=== PATIENT | female | born 1965 | race Caucasian/White ===

== ENCOUNTER 2018-07-13 20:34 | Emergency (ER) | payer BC, OTHER ==
[~2018-07-13] VITALS: Ht 167.6 cm; Wt 87.7 kg
[2018-07-13] MEDS ORDERED: bacitracin 15gm ointment TP ONE (21:55)
[2018-07-13] MEDS ORDERED: morphine 4 MG/ML inj SYRINge IV ONE (21:55)
[2018-07-13] MEDS ORDERED: ondansetron/PF 4mg/2ml inj IV ONE (21:55)
[2018-07-13] MEDS ORDERED: normal saline 1000ML IV soln IVB ONE (21:55)
[2018-07-13] MEDS ORDERED: ketorolac trometh. 30mg/ml inj. IV ONE (21:55)
[2018-07-13] MEDS ORDERED: doxycycline inj 100 MG in normal saline 100ml IV soln 100 ML IV ONE (22:00)
[2018-07-13] MEDS ORDERED: ceFAZolin 1GM/D5W- ADD-VANTAGE 50 ML IV ONE (22:00)
[2018-07-14] MEDS ORDERED: DOXY100C43 PO (00:02)
[2018-07-14] MEDS ORDERED: CEPH250T PO (00:02)
[2018-07-14] MEDS ORDERED: ONDA8TAB6 PO (00:02)
[2018-07-14] MEDS ORDERED: HYDR-3965 PO (00:02)
[2018-07-14] MEDS ORDERED: HYDROcodone/acetaminophen 5mg/325mg tablet PO ONE (01:10)
[2018-07-14 01:17] VITALS: BP 126/84
[2018-07-15] MEDS ORDERED: LINE600T36 PO (23:43)
[2018-07-15] MEDS ORDERED: HYDR-4353 PO (23:43)
== END 2018-07-14 01:28 | disposition home or self-care (01) ==
LOC: ER 20:35
DX: L02.01 Cutaneous abscess of face (principal); Z86.14 Personal history of Methicillin resistant Staphylococcus aureus infection; Z88.2 Allergy status to sulfonamides; Z88.8 Allergy status to other drugs, medicaments and biological substances; Z79.899 Other long term (current) drug therapy
CPT/HCPCS: 10061; 87070; 87077; 87186; 96365; 96375; 99284; J0690; J1885; J2270; J2405; J3490; J7030

== ENCOUNTER 2018-07-15 19:23 | Emergency (ER) | payer BC, OTHER ==
[~2018-07-15] VITALS: Ht 167.6 cm; Wt 100.0 kg
[~2018-07-15 19:23] MED LIST: CEPH250T PO; DOXY100C43 PO; HYDR-3965 PO; ONDA8TAB6 PO
[2018-07-15] MEDS ORDERED: normal saline 1000ML IV soln IVB ONE (20:00)
[2018-07-15] MEDS ORDERED: LORazepam 2 mg/ml vial IV ONE ×2 (20:00→21:20)
[2018-07-15] MEDS ORDERED: probenecid 500mg tablet PO ONE (20:00)
[2018-07-15] MEDS ORDERED: gentamicin 40 MG/1 ML inj IV STA (20:00)
[2018-07-15] MEDS ORDERED: morphine 4 MG/ML inj SYRINge IV ONE ×3 (20:00→23:35)
[2018-07-15] MEDS ORDERED: LIDOcaine 1.5% w/epinephrine 1:200,000 5ml ampul IJ ONE (20:10)
[2018-07-15] MEDS ORDERED: ampicillin/sulbac 3gm/NS 100ml 100 ML IV ONE (20:11)
[2018-07-15] MEDS ORDERED: GENTAMICIN IV ONE (20:12)
[2018-07-15] MEDS ORDERED: NORMAL SALINE IV ONE (20:12)
[2018-07-15] MEDS ORDERED: LIDOcaine 1% w/epiNEPHrine 1:200,000 30ml vial IJ ONE (20:15)
[2018-07-15 20:33] LABS: BASOPHILS # (AUTO) 0.1 X10'3 (0-0.2); BASOPHILS % (AUTO) 0.5 % (0-1); EOSINOPHILS # (AUTO) 0.2 X10'3 (0-0.9); EOSINOPHILS % (AUTO) 1.9 % (0-6); HEMATOCRIT 43.7 % (35.0-45.0); HEMOGLOBIN 14.7 g/dl (12.0-16.0); LYMPHOCYTES # (AUTO) 2.7 X10'3 (1.1-4.8); LYMPHOCYTES % (AUTO) 24.4 % (21-51); MEAN CORPUSCULAR HEMOGLOBIN 28.4 PG (27.0-31.0); MEAN CORPUSCULAR HGB CONC 33.7 % (33.0-36.5); MEAN CORPUSCULAR VOLUME 84.2 FL (78-98); MEAN PLATELET VOLUME 7.9 FL (7.4-10.4); MONOCYTES # (AUTO) 0.4 X10'3 (0-0.9); MONOCYTES % (AUTO) 3.9 % (2-12); NEUTROPHILS # (AUTO) 7.6 X10'3 (1.8-7.7); NEUTROPHILS % (AUTO) 69.3 % (42-75); PLATELET COUNT 424 X10'3 (140-440); RED BLOOD COUNT 5.19 X10'6 (4.20-5.60); RED CELL DISTRIBUTION WIDTH 12.9 % (11.5-14.5)
[2018-07-15 20:39] LABS: ALBUMIN 3.3 G/DL (3.4-5.0); ANION GAP 8 (8-16); BILIRUBIN,TOTAL 0.3 MG/DL (0.1-1.0); BLOOD UREA NITROGEN 13 MG/DL (7-18); BUN/CREATININE RATIO 15.5 (6.6-38.0); CALCIUM 8.6 MG/DL (8.5-10.1); CHLORIDE 101 MMOL/L (99-107); CREATININE 0.84 MG/DL (0.40-0.90); GLUCOSE 108 MG/DL (70-104); POTASSIUM 3.7 MMOL/L (3.5-5.1); SODIUM 139 MMOL/L (135-145); TOTAL CARBON DIOXIDE 29.7 MMOL/L (24-32); TOTAL PROTEIN 7.1 G/DL (6.4-8.2); eGFR 72 ML/MIN
[2018-07-15 20:40] LABS: ALANINE AMINOTRANSFERASE 17 U/L (12-78); ALBUMIN/GLOBULIN RATIO 0.9 (1.1-1.5); ALKALINE PHOSPHATASE 77 IU/L (46-116); ASPARTATE AMINO TRANSFERASE 9 U/L (10-37)
[2018-07-15] MEDS ORDERED: HYDROcodone/acetaminophen 10/325mg tab PO ONE (20:55)
[2018-07-15] MEDS ORDERED: LORazepam 1 MG tablet PO ONE (20:55)
[2018-07-15] MEDS ORDERED: iohexol 300mg/ml 100ml inj. ONE (21:45)
[2018-07-15] MEDS ORDERED: LINE600T36 PO (23:43)
[2018-07-15] MEDS ORDERED: HYDR-4353 PO (23:43)
[2018-07-16 00:08] VITALS: BP 150/83
[2018-07-16] MEDS ORDERED: linezolid 600mg tablet PO ONE (00:45)
[2018-07-16] MEDS ORDERED: HYDR-4353 PO ×2 (00:59→01:21)
[2018-07-16] MEDS ORDERED: LINE600T36 PO ×2 (00:59→01:21)
--- NOTE | 2018-07-16 07:50 | NUR ---
PT CALLED STATING THAT SHE WAS SEEN BY DR ALBRECHT LAST NIGHT FOR FACICAL CELLULITIS PER PROVIDER NOTES. PT STATES THAT SHE WAS GIVEN AN RX FOR ZYVOX AND IS NOT ABLE TO GET IT FILLED AT HER PARMACY DUE TO NEEDING A PRE-AUTHORIZATION FOR THE MEDICATION. PT STATES THAT SHE HAS BEEN TAKING CLINDAMYCIN, KEFLEX AND DOCYCLINE; PT IS ALLERGIC TO SULFAS. PT STATES THAT DR ALBRECHT TOLD HER THAT IF SHE HAD ANY PROBLEMS TO CALL HIM AND "HE WOULD TAKE CARE OF IT". I EXPLAINED TO PT THAT DR ALBRECHT HAS LEFT FOR THE DAY AND WOULD BE BACK THIS EVENING AT 1999. I PLACED THE PT ON HOLD AND SPOKE WITH DR JOINER REGARDING PT'S SITUATION. PER DR JOINER, THE ER DOES NOT DEAL WITH PRE-AUTHORIZATIONS FOR MEDICATION WITH INSURANCE COMPANIES AND THAT THE PT NEEDED TO F/U WITH PMD OR RETURN TO ER SHOULD SHE HAVE CONCERNS. PT WAS INFORMED OF CONVERSATION WITH DR JOINER, STATES THAT DR ALBRECHT INSISTED THAT SHE NEEDED TO START THE MEDICATION TODAY AND THAT IF THAT WAS NOT POSSIBLE FOR HER TO RETURN TO THE ER FOR POSSIBLE ADMISSION AND IV ABX ADMIINISTRATION. PT INFATICALLY INSISTED THAT THIS WAS NOT AN OPTION FOR HER AND INSTISTED THAT DR ALBRECHT BE CALLED. I INFORMED PT THAT ACCORDING TO DR ALBRECHTS SUMMARY NOTES THAT SHE WAS TO F/U WITH HER PMD IN 1-2 DAYS, CONTINUE TAKING ABX BEFORE AND TO START NEW ABX OR RETURN TO ER FOR ANY FURTHER WORSENING CONDITION OR CONCERNS. PT CONTINUED TO INSIST THAT DR ALBRECHT BE CALLED AT HOME OF WHICH WAS EXPLAINED TO HER THAT HE HAS BEEN UP ALL NIGHT AND THAT HE WOULD BE IN AT 1999 THIS EVENING. AT THIS POINT PT BECAME TEARFUL AND ANGRY ON THE PHONE, INSISTING THAT WE NEEDED TO GET HER AURTHORIZATION BECAUSE DR ALBRECHT INSISTED THAT SHE START THE MEDICATION THIS AM. AGAIN IT WAS EXPLAINED TO THE PT THAT SHE NEEDED TO F/U WITH HER PMD FOR FURTHER TX AND PRE-AUTHORIZATION FOR HER RX OR SHE CAN RETURN TO ER RECOMMENDED BY DR ALBRECHT'S SUMMARY NOTES. PT INSISTED ON KNOWING WHAT THE DR'S SUMMARY NOTE SAID AND PT WAS READ THE NOTE VERBATUM. PT THEN BECAME ANGRIER, STATING " WHY WOULD THE DR SAY ONE THING TO ME AND WRITE SOMETHING ELSE?". I ASSURED PT THAT I DID NOT KNOW, HOWEVER THE DR WANTED HER TO F/U WITH PMD SHE HAD AN APPT TOMORROW AFTERNOON. PT CONTINUED TO INSIST THAT WE CALL DR ALBRECHT, STATING THAT SHE DID NOT WANT TO COME TO THE ER AND THAT SH WANTED TO START TAKING HER MEDICATION DR ALBRECHT TOLD HER TO DO. PT WAS AGAIN ADVISED THAT THE ONLY OPTIONS WE COULD OFFER HER WAS TO COME INTO THE ER RECOMMENDED BY DR ALBRECHT SINCE SHE IS CONCERNED OR TO F/U WITH HER PMD SHE HAD PLANNED. PT CONTINUED TO NOT BE HAPPY WITH HER OPTIONS AND INSISTED ON HAVING THIS WRITERS NAME SO SHE COULD TURN IN A FORMAL COMPLAINT. MY FIRST NAME WAS PROVIDED TO THE PT AT WHICH SHE THEN HUNG UP AFTER STATING SHE WAS GOING TO ADD MY NAME TO A COMPLAINT. DR JOINER WAS NOTIFIED OF THE CONVERSATION WITH THIS PT AND NO FURTHER ACTION WAS TAKEN.
== END 2018-07-16 01:28 | disposition home or self-care (01) ==
LOC: ER 19:24
DX: L03.211 Cellulitis of face (principal); L53.8 Other specified erythematous conditions; L02.01 Cutaneous abscess of face; Z86.14 Personal history of Methicillin resistant Staphylococcus aureus infection; Z79.899 Other long term (current) drug therapy; Z88.2 Allergy status to sulfonamides; Z88.1 Allergy status to other antibiotic agents; Z88.8 Allergy status to other drugs, medicaments and biological substances
CPT/HCPCS: 10060; 36415; 70487; 80053; 84145; 85025; 96365; 96367; 96375; 96376; 99284; J1580; J2060; J2270; J3490; Q9967; J0295; J7030